=== PATIENT | male | born 2000 | race Caucasian/White ===

== ENCOUNTER 2021-09-06 10:49 | Emergency (ER) | payer BC ==
[2021-09-06 10:58] VITALS: TEMP 98.1
--- NOTE | 2021-09-06 11:46 | XR ---
EXAMINATION TYPE: XR foot complete RT DATE OF EXAM: 09/06/2021 CLINICAL HISTORY: Slip and fall injury with pain. TECHNIQUE: Frontal, lateral, and oblique images of the right foot are obtained. COMPARISON: None FINDINGS: There is no acute fracture/dislocation evident in the right foot. The joint spaces in the right foot appear within normal limits. The overlying soft tissue appears unremarkable. IMPRESSION: There is no acute fracture or dislocation in the right foot.
[2021-09-06] MEDS ORDERED: KETOROLAC 15 MG/ML 1 ML VIAL IM STA (12:48)
--- NOTE | 2021-09-06 12:52 | ED ---
General Adult HPI - General Chief complaint: Fall Stated complaint: fall on ice, rt foot injury Time Seen by Provider: 09/06/21 12:30 Source: patient, family Mode of arrival: ambulatory Limitations: no limitations - History of Present Illness Initial comments: This 20-year-old male presents emergency Department after slipping this morning on ice and landing on his right foot. Patient states he is having pain to the top of his right foot. He states he did break this ankle in the past when he was a child but denies having any ankle pain at this time. Patient states he noticed the top of his foot did began to slightly swell so he wanted to get x- rays to be sure nothing was broken. Patient states the pain does increase when he is walking to about 7/10, however when he is sitting and not putting any weight on his foot he denies having any pain. Patient denies taking any pain medications at home. Patient denies any loss of range of motion or sensation to right foot, ankle or leg. Patient denies hitting his head or losing consciousness. Patient denies any chest pain, shortness of breath, abdominal pain, nausea, vomiting, change in bowel or bladder, change in vision, lightheadedness, dizziness, back pain, neck pain. - Related Data Allergies Allergy/AdvReac Type Severity Reaction Status Date / Time No Known Allergies Allergy Verified 09/06/21 10:58 Review of Systems ROS Statement: Those systems with pertinent positive or pertinent negative responses have been documented in the HPI. ROS Other: All systems not noted in ROS Statement are negative. Past Medical History Past Medical History: No Reported History History of Any Multi-Drug Resistant Organisms: None Reported Past Surgical History: No Surgical Hx Reported Past Psychological History: No Psychological Hx Reported Smoking Status: Never smoker Past Alcohol Use History: Occasional Past Drug Use History: None Reported General Exam Limitations: no limitations General appearance: alert, in no apparent distress Head exam: Present: atraumatic, normocephalic, normal inspection Eye exam: Present: normal appearance, PERRL, EOMI. Absent: scleral icterus, conjunctival injection, periorbital swelling ENT exam: Present: normal exam, mucous membranes moist Neck exam: Present: normal inspection, full ROM. Absent: tenderness, meningismus, lymphadenopathy Respiratory exam: Present: normal lung sounds bilaterally. Absent: respiratory distress, wheezes, rales, rhonchi, stridor Cardiovascular Exam: Present: regular rate, normal rhythm, normal heart sounds. Absent: systolic murmur, diastolic murmur, rubs, gallop, clicks GI/Abdominal exam: Present: soft, normal bowel sounds. Absent: distended, tenderness, guarding, rebound, rigid Extremities exam: Present: normal inspection, full ROM (Patient with full range of motion and sensation. Mild swelling to dorsal surface of foot. No erythema, warmth or sign of infection), normal capillary refill, other (DP pulses palpable right lower extremity. Sensation intact relocks remedy, ankle and foot. Pain to palpation over first and second metatarsal. Patient neurovascularly intact. Able to move toes, ankle and foot, he states it does cause pain to his first and second metatarsal when wiggling toes). Absent: tenderness, calf tenderness Back exam: Present: normal inspection, full ROM. Absent: CVA tenderness (R), CVA tenderness (L), paraspinal tenderness, vertebral tenderness Neurological exam: Present: alert, oriented X3, CN II-XII intact Psychiatric exam: Present: normal affect, normal mood Skin exam: Present: warm, dry, intact, normal color. Absent: rash Course Vital Signs 09/06/21 10:55 Temperature 98.1 F Pulse Rate 59 L Respiratory 18 Rate Blood Pressure 121/79 O2 Sat by Pulse 100 Oximetry Procedures - Orthopedic Splinting/Casting Injury #1 Side: right Lower Extremity Injury Location: foot Lower Extremity Immobilizer: Praveen wrap Medical Decision Making - Medical Decision Making This 20-year-old male presents emergency Department after stopping fine ice this morning, causing right foot pain. Right foot x-ray without any dislocations or fractures. Praveen wrap applied. Toradol IM injection given. Patient instructed to ice, elevate and rest right foot. Patient instructed to follow up with his primary care provider next couple days if no improvement. Patient states he is here from [place] therefore did give him a primary care provider in the area. Patient is able to stand up and walk on his own. Strict return precautions were discussed. Patient verbally agreed to plan. Patient sent home in stable condition. Case discussed detailed my attending, Dr. Landaverde. - Radiology Data Radiology results: report reviewed, image reviewed Disposition Clinical Impression: Strain of foot, left Disposition: HOME SELF-CARE Condition: Stable Instructions (If sedation given, give patient instructions): Muscle Strain (DC), Fall Prevention (ED) Additional Instructions: Please rest, elevate and ice right foot. Take Tylenol or Motrin as directed for pain relief. Follow-up with primary care provider next 24-48 hours. Return to the emergency department with any new, worsening, or concerning symptoms. Is patient prescribed a controlled substance at d/c from ED?: No Referrals: Nonstaff,Physician [Primary Care Provider] - 1-2 days Dimitry Reid [STAFF PHYSICIAN] - 1-2 days Time of Disposition: 12:56
[2021-09-06 13:44] VITALS: BP 110/74; PULSE 83; RESP 16
== END 2021-09-06 13:44 | disposition home or self-care (01) ==
LOC: EC 10:49
DX: S96.911A Strain of unspecified muscle and tendon at ankle and foot level, right foot, initial encounter (principal); W00.0XXA Fall on same level due to ice and snow, initial encounter
CPT/HCPCS: 99283; 96372; 73630; J1885